=== PATIENT | male | born 1935 | race Caucasian/White ===

== ENCOUNTER 2018-09-03 04:01 | Emergency (ER) | payer MEDICARE ==
[~2018-09-03] VITALS: Ht 180.3 cm; Wt 75.0 kg
[2018-09-03 04:03] VITALS: Ht 180.3 cm; Wt 75.0 kg
[2018-09-03] MEDS ORDERED: PLAVIX75 MG PO (04:05)
[2018-09-03] MEDS ORDERED: PREDNISONE2.5 MG (04:05)
[2018-09-03] MEDS ORDERED: OMEPRAZOLE40 MG PO (04:05)
[2018-09-03] MEDS ORDERED: FLOMAX0.4 MG PO (04:05)
[2018-09-03 04:33] LABS: BASOPHILS 0.3 % (0-2); EOSINOPHILS 15.5 % (0-7); HEMATOCRIT 41.5 % (42.0-54.0); HEMOGLOBIN 14.1 g/dL (13.5-17.5); IMMATURE GRANULOCYTES 0.3 % (0-5); LYMPHOCYTES 25.7 % (15-50); MCH 31.2 pg (26.0-34.0); MCV 91.8 fL (80.0-100.0); MEAN PLATELET VOLUME 9.6 fL (7.4-10.4); MONOCYTES 10.2 % (2-11); PLATELET COUNT 198 10x3/uL (130-400); RBC 4.52 10x6/uL (4.20-6.10); RDW 12.8 % (11.5-14.5); WBC 6.7 10x3/uL (4.8-10.8)
[2018-09-03 04:40] LABS: INR 1.11 (0.85-1.17); PROTIME 13.9 SECONDS (11.6-15.0)
[2018-09-03 04:42] LABS: D-DIMER-QUANTITATIVE 0.78 ug/mLFEU (0.20-0.54)
[2018-09-03 04:47] LABS: ALBUMIN 3.5 g/dL (3.4-5.0); ALKALINE PHOSPHATASE 53 U/L (46-116); ALT (SGPT) 21 U/L (10-68); BILIRUBIN - TOTAL 0.65 mg/dL (0.2-1.3); CALC OSMOLALITY 278 mosm/kg (275-300); CALCIUM 8.6 mg/dL (8.5-10.1); CARBON DIOXIDE 25.4 mmol/L (21.0-32.0); CHLORIDE - SERUM 104 mmol/L (98-107); GLUCOSE 116 mg/dL (74-106); POTASSIUM - SERUM 3.3 mmol/L (3.5-5.1); PROTEIN - SERUM 6.7 g/dL (6.4-8.2); SODIUM 140 mmol/L (136-145); UREA NITROGEN 10 mg/dL (7-18); eGFR NON AFRICAN AMERICAN 76 mL/min (90-120)
[2018-09-03 05:04] LABS: CKMB 1.8 U/L (0.0-3.6); CREATINE KINASE 156 UL (21-232); PRO BNP 218 pg/mL (0-450)
[2018-09-03 05:08] LABS: TROPONIN-I < 0.017 ng/mL (0.000-0.060)
[2018-09-03] MEDS ORDERED: STERAPRED DS 1210 MG PO (06:43)
[2018-09-03] MEDS ORDERED: ZPAK PO (06:43)
[2018-09-03 06:53] VITALS: BP 137/84
== END 2018-09-03 06:53 | disposition home or self-care (01) ==
LOC: D.ER 04:01
PROVIDERS: Family Medicine
DX: J20.9 Acute bronchitis, unspecified (principal); J44.1 Chronic obstructive pulmonary disease with (acute) exacerbation; Z86.73 Personal history of transient ischemic attack (TIA), and cerebral infarction without residual deficits; K21.9 Gastro-esophageal reflux disease without esophagitis